=== PATIENT | female | born 1995 | race Caucasian/White ===

== ENCOUNTER 2018-04-13 22:15 | Emergency (ER) | payer MEDICAID, SELFPAY ==
[2018-04-13 22:17] VITALS: BP 117/84; PULSE 73; RESP 22; TEMP 37; O2SAT 98; BMI 38.5
--- NOTE | 2018-04-13 22:48 | ED.VISSUMM ---
- ER Visit Summary Date of Service: 04/13/18 Chief Complaint: Abdominal pain History of Present Illness: The patient is a 22 F with chronic lower abdominal pain along her prior scar for the past 5 years. Pain is reported been worse over the past couple of weeks. Patient states the pain was significant a worsened night she had difficulty standing upright. She denies fever or chills. There is no dysuria. She did take 800 mg of ibuprofen at 9:45 PM. Patient reportedly has seen her [employer] about this in the past but was told there is nothing that can be done. Physical Examination: Vital signs are unremarkable. Patient's lying in bed no acute distress. Heart is regular rate and rhythm. Lung sounds are clear. Abdomen is soft with minimal tenderness along the lower abdomen. The skin is without erythema or lesion. There is no palpable abscess. There is no guarding or rebound. Hypoactive bowel sounds are noted. Test Results: Urinalysis is obtained and normal. Urine test is negative. Emergency Department Course and Treatment: Patient was given Tylenol here. She taken ibuprofen approximately hour prior to arrival. Repeat evaluation patient still intermittently tearful. Abdomen remains soft with very minimal tenderness. I believe the patient likely has scar tissue and nerve irritation from her prior surgery. I recommended follow-up with pain management to see if they can offer her some relief. She will be referred to Dr. Smith. Treatment Plan: [] Disposition: Discharge Impression: Chronic abdominal pain This note was generated with [employer] dictation software. It may contain incorrect words, spelling, and punctuation that were not noted in review of the chart prior to signing ED Disposition - Plan for ED Patient: Chief Complaint: Abd Pain Referrals: Care Physician,No Primary [Primary Care Provider] -
[2018-04-13] MEDS: Acetaminophen 500 MG Tablet 1000 MG PO (23:04)
[2018-04-13 23:18] LABS: Bacteria 0 SEEN /hpf (None Seen); Mucous, Urine 0 SEEN /hpf (<or=2+); Red Blood Cells-Urine 0 SEEN /hpf (0-5)
[2018-04-13 23:30] LABS: Internal QC Validated? YES +Cl - CLEAR BKGD; Pregnancy, Urine Negative Negative
[2018-04-13 23:32] LABS: Color, Urine Yellow (Yellow); Glucose, Dipstick NEGATIVE (Normal); Ketone-Dipstick Negative (Negative); Specific Gravity, Urine 1.025 (1.002-1.030); Urine Bilirubin Dipstick Negative (Negative); Urine Clarity Clear (Clear)
[2018-04-13 23:33] LABS: Leukocyte Esterase-Dipstick Negative /ul (Negative); Nitrite-Dipstick Negative (Negative); Occult Blood-Urine Negative /ul (Negative); Protein-Dipstick 15 mg/dl (Negative); Urine Urobilinogen Normal (Normal)
[2018-04-13 23:35] LABS: Squamous Epithelial Cells - UA 0-5 SEEN /hpf (5-10)
[2018-04-13 23:36] LABS: White Blood Cells 0-5 SEEN /hpf (0-5)
--- NOTE | 2018-04-13 23:40 | ED.DEP ---
ED Disposition - Plan for ED Patient: Disposition: Home or Assisted Living Chief Complaint: Abd Pain Instructions: ED Abdominal Pain Unkn Cause Prescriptions: Naproxen [Naprosyn] 500 mg PO BID PRN PRN #20 tablet PRN Reason: Pain Referrals: Sunday Tillman MD [STAFF PHYSICIAN] - As soon as possible
== END 2018-04-13 23:50 | disposition home or self-care (01) ==
PROVIDERS: Emergency Provider Emergency Medicine; Family Provider Family Medicine
DX: G89.29 Other chronic pain (principal); R10.9 Unspecified abdominal pain; F32.9 Major depressive disorder, single episode, unspecified
CPT/HCPCS: 81001; 81025; 99283

== ENCOUNTER 2018-08-06 10:53 | Emergency (ER) | payer MEDICAID, SELFPAY ==
[2018-08-06 10:54] VITALS: BP 118/74; PULSE 99; RESP 18; TEMP 36.6; O2SAT 96; BMI 36.6
--- NOTE | 2018-08-06 11:19 | ED.VISSUMM ---
- ER Visit Summary Date of Service: 08/06/18 Chief Complaint: Vomiting and diarrhea History of Present Illness: The patient is a 23 F with no primary care physician. She reports that she has abdominal pain, vomiting, and diarrhea that began yesterday. She describes abdominal pain as an aching diffuse pain is 7-10 hours and 5-10 currently. Is worsened by vomiting relieved by nothing. She is been nausea and vomited partially 10 times. No blood or emesis. She reports that she had a lot of diarrhea. No blood in her stools or black tarry stools. No dysuria or frequency. Patient denies sick contacts. Has not been camping out of the country. No possible bad food exposure. Does not drink well water. No recent antibiotic use. Physical Examination: Vitals: Stable. Afebrile. General: Well-nourished and well-developed. Head: Normocephalic atraumatic. Neck: Supple, no lymphadenopathy. No JVD. Nontender. Cardiovascular: Regular rate and rhythm. No murmurs. Respiratory: No respiratory distress. Clear to auscultation bilaterally. Abdominal: Soft, mild diffuse tenderness to palpation, nondistended, normal bowel sounds. No guarding, rebound, or peritoneal signs. Back: Nontender. Extremities: Nontender, no edema. Skin: Normal color, no rash. Neurologic: Alert and oriented ?3. Cranial nerves II through XII are intact. Normal strength and sensation. Psych: Normal affect. Test Results: test is negative. Emergency Department Course and Treatment: Patient had an IV placed. She was given a liter normal saline. She was given Toradol and Zofran IV. She is resting comfortably. Treatment Plan: Patient will be discharged with Zofran. Instructed to push fluids. Did discuss symptomatic treatment. [facility] if not improving. Return to the emergency department for any worsening symptoms. Disposition: To home in improved and stable condition. Impression: 1. Vomiting/diarrhea. This note was generated with [employer] dictation software. It may contain incorrect words, spelling, and punctuation that were not noted in review of the chart prior to signing ED Disposition - Plan for ED Patient: Chief Complaint: Nausea/Vomiting Instructions: ED Vomiting Diarrhea Nonspecific Ad Prescriptions: Ondansetron [Zofran Odt] 4 mg PO Q8H PRN PRN #10 tablet PRN Reason: Nausea Referrals: Una Wilcox [NON-STAFF] - 1-2 Days if not improving
[2018-08-06] MEDS: 0.9% Normal Saline 1,000 ML 1000 ML IV (12:31)
[2018-08-06] MEDS: Ondansetron 4 MG/2 ML Vial IV (12:32)
[2018-08-06] MEDS: Ketorolac 30 MG/ML Syringe IV (12:32)
[2018-08-06 12:50] LABS: Pregnancy, Serum, hCG Quali. NEGATIVE Negative (0-9 Nonpreg)
[2018-08-06 13:47] VITALS: BP 124/76; PULSE 81; RESP 14
== END 2018-08-06 13:49 | disposition home or self-care (01) ==
PROVIDERS: Emergency Provider Emergency Medicine
DX: R19.7 Diarrhea, unspecified (principal); R11.2 Nausea with vomiting, unspecified; R10.9 Unspecified abdominal pain
CPT/HCPCS: 84703; 96361; 96374; 96375; 99283; J7030; A4216; J2405

== ENCOUNTER 2019-01-23 19:50 | Emergency (ER) | payer MEDICAID, SELFPAY ==
[2019-01-23 19:51] VITALS: BP 150/76; PULSE 77; RESP 18; TEMP 36.4; O2SAT 98; BMI 37.7
[2019-01-23] MEDS: DiphenhydrAMINE 50 MG/ML Syringe 25 MG IV (20:41)
[2019-01-23] MEDS: Ketorolac 30 MG/ML Syringe IV (20:41)
[2019-01-23] MEDS: proCHLORPERazine 10 MG/2 ML Vial IV (20:41)
[2019-01-23] MEDS: 0.9% Normal Saline 1,000 ML 999 ML IV (20:41)
--- NOTE | 2019-01-23 21:39 | ED.VISSUMM ---
- ER Visit Summary Date of Service: 01/23/19 Chief Complaint: Headache History of Present Illness: The patient is a 23 F who states that for the past 3 days she has had a intermittent headache. Today however it has been constant. She describes it as a pressure forehead extending up to the vertex. She notes light sensitivity. No aura. She had nausea vomiting. She has been taking a medicine called headache relief. No fevers or rashes. No neck stiffness. She denies any neurologic deficits. No visual changes. Physical Examination: Afebrile vital signs are stable Gen: Well-nourished well-developed Head: Normocephalic atraumatic Eyes: Perrl EOMI mild light sensitivity ENT: TMs clear no rhinorrhea moist mucous membranes Neck: Supple no lymphadenopathy no JVD nontender CVS: Regular rate rhythm no murmurs normal S1-S2 Respiratory: No distress clear to auscultation bilaterally chest nontender Abdomen: Soft nontender nondistended normal bowel sounds no masses Back: Nontender Extremity: Nontender no edema Skin: Normal color no rash Neuro: alert orientated ?3 CN II-XII intact normal strength sensation reflexes gait cerebellar Psych: Normal affect normal mood Emergency Department Course and Treatment: Patient received Toradol Compazine Benadryl and IV fluids. Repeat examination finds the patient rating her pain a 1 out of 10. She will be discharged home. I will refer her to primary care if she wishes to follow-up. Impression: 1. Acute headache This note was generated with [employer] dictation software. It may contain incorrect words, spelling, and punctuation that were not noted in review of the chart prior to signing ED Disposition - Plan for ED Patient: Disposition: Home or Assisted Living Instructions: HEADACHE, Unspecified Referrals: Jaydon Kelley MD [STAFF PHYSICIAN] - (as needed for primary care)
[2019-01-23 22:02] VITALS: PULSE 89; RESP 16; O2SAT 98
== END 2019-01-23 22:02 | disposition home or self-care (01) ==
PROVIDERS: Emergency Provider Emergency Medicine
DX: R51 Headache (principal); R11.2 Nausea with vomiting, unspecified; Z72.0 Tobacco use; F31.9 Bipolar disorder, unspecified; F41.9 Anxiety disorder, unspecified
CPT/HCPCS: 96361; 96374; 96375; 99284; J7030

== ENCOUNTER 2023-10-18 17:44 | Emergency (ER) | payer MEDICAID, SELFPAY ==
[2023-10-18 17:46] VITALS: BP 145/74; PULSE 90; RESP 16; TEMP 35.8; O2SAT 94; BMI 45.0
--- NOTE | 2023-10-18 18:20 | ED.RN ---
Patient LWBS at 1820.
== END 2023-10-18 18:20 | disposition left against medical advice (07) ==
LOC: ED 18:41
DX: Z53.21 Procedure and treatment not carried out due to patient leaving prior to being seen by health care provider (principal)

== ENCOUNTER → 2024-06-09 | Outpatient (CLI) | payer MEDICARE, SELFPAY ==
[2024-06-09 15:16] LABS: Absolute Lymphocyte Count 1.54 X10^3/uL (0.83-4.51); Absolute Neutrophil Count 5.3 X10^3/uL (2.0-7.7); Basophil# 0.03 X10^3/uL; Basophil% 0.4 % (0-1); Eosinophil# 0.09 X10^3/uL; Eosinophils% 1.2 % (0-5); Hematocrit 36.5 % (37-47); Hemoglobin 11.4 g/dL (12.0-15.0); Lymphocyte # 1.54 X10^3/ul (0.83-4.51); Lymphocyte % 20.7 % (19-41); Mean Corp Hgb Conc 31.2 g/dL (32-36); Mean Corpuscular Hgb 25.5 pg (27.0-32.0); Mean Corpuscular Volume 81.7 fL (81-99); Mean Platelet Vol. 9.3 fl (6.2-12.0); Monocyte# 0.44 X10^3/uL; Monocyte% 5.9 % (0-10); NRBC Flagged by Analyzer 0 % (0-5); Neutrophil % 71.4 % (47-70); Platelet Count 287 K/mm3 (150-450); RBC Distribution Width CV 13.5 % (11.6-14.6); RBC Distribution Width SD 39.8 fl (35.1-43.9); Red Blood Count 4.47 M/mm3 (4.2-5.4); White Blood Count 7.4 K/mm3 (4.4-11.0)
[2024-06-09 15:36] LABS: Vitamin D,25 Hydroxy 26.5 ng/mL
[2024-06-09 15:40] LABS: ALB/GLOB Ratio 0.9 RATIO (0.9-2.4); AST(SGOT) 17 U/L (15-37); Alanine Aminotransfer ALT/SGPT 18 U/L (13-56); Albumin, Serum 3.6 g/dL (3.2-5.0); Alkaline Phosphatase 115 U/L (45-117); Anion Gap 7 (5-15); BUN 12 mg/dL (7-18); BUN/Creat Ratio 16.8 RATIO (10-20); Calcium,Total 8.8 mg/dL (8.5-10.1); Chloride 106 mmol/L (98-107); Cholesterol 194 mg/dL (200); Creatinine, Serum 0.71 mg/dL (0.55-1.02); EST Glomerular Filtration Rate 104 mL/min (>60); Est Glom Filt Rate - Afr Amer 126 mL/min (>60); Glucose 87 mg/dL (74-106); High Density Lipoprotein 73 mg/dL; Potassium 3.8 mmol/L (3.5-5.1); Protein, Total 7.6 g/dL (6.4-8.2); Sodium Level 137 mmol/L (136-145); Triglycerides 100 mg/dL; Very Low Density Lipoprotein 20 mg/dL (5-40)
[2024-06-10 11:07] LABS: hCG Titer Quant., Serum < 1 mIU/mL (1-3)
== END | disposition home or self-care (01) ==
LOC: MTLAB 12:45
PROVIDERS: PCP Family Medicine; Referring Provider Family Medicine; Visit Provider Family Medicine
DX: Z13.220 Encounter for screening for lipoid disorders (principal); Z13.1 Encounter for screening for diabetes mellitus; G47.00 Insomnia, unspecified; F32.A Depression, unspecified; O03.9 Complete or unspecified spontaneous abortion without complication
CPT/HCPCS: 36415; 80053; 80061; 82306; 84702; 85025

== ENCOUNTER → 2024-08-24 | Outpatient (CLI) | payer MEDICARE, SELFPAY ==
--- NOTE | 2024-08-24 16:30 | RAD_ITS ---
PROCEDURE: FOOT MIN 3 VIEWS REASON FOR EXAM: Foot injury. Pain along the lateral aspect. TECHNIQUE: 3 view(s) of the right foot COMPARISON: None. FINDINGS: RIGHT FOOT: Anatomic alignment. Trace spurring involving the dorsal navicular. No acute appearing fractures or dislocations are identified. No bony destructive lesions are seen. Overlying soft tissues appear intact. No radiopaque foreign b odies are identified. RAD/Foot min 3 Views IMPRESSION: No acute osseous abnormalities identified. Reading Location: [id number]
== END | disposition home or self-care (01) ==
LOC: MTRAD 16:27
PROVIDERS: PCP Family Medicine; Referring Provider Family Medicine; Visit Provider Family Medicine
DX: M79.671 Pain in right foot (principal)
CPT/HCPCS: 73630

== ENCOUNTER → 2024-11-17 | Outpatient (CLI) | payer MEDICARE, SELFPAY ==
--- NOTE | 2024-11-17 07:55 | US_ITS ---
PROCEDURE: ABDOMEN LIMITED 11/17/2024 REASON FOR EXAM: RUQ PAIN COMPARISON: No priors. FINDINGS: Liver: Diffusely echogenic suggesting fatty infiltration. The liver measures 16.6 cm. Gallbladder: No stones, sludge, wall thickening or tenderness. Common bile duct: Normal measuring it measures 5.6 mm.. Pancreas: Visualized portions are sonographically unremarkable. Other: Visualized portions of the right kidney are unremarkable. No right upper quadrant ascites. US/Abdomen Limited IMPRESSION: Fatty infiltration of the liver. The liver measures 16.6 cm. Reading Location: [place] [id number]
== END | disposition home or self-care (01) ==
LOC: US 07:51
PROVIDERS: PCP Family Medicine; Referring Provider Family Medicine; Visit Provider Family Medicine
DX: R10.11 Right upper quadrant pain (principal)
CPT/HCPCS: 76705

== ENCOUNTER → 2024-12-01 | Outpatient (CLI) | payer MEDICARE, SELFPAY ==
[2024-12-01 09:49] LABS: Absolute Lymphocyte Count 1.84 X10^3/uL (0.83-4.51); Absolute Neutrophil Count 5.1 X10^3/uL (2.0-7.7); Basophil# 0.02 X10^3/uL; Basophil% 0.3 % (0-1); Eosinophil# 0.09 X10^3/uL; Eosinophils% 1.2 % (0-5); Hematocrit 40.4 % (37-47); Hemoglobin 13.4 g/dL (12.0-15.0); Lymphocyte # 1.84 X10^3/ul (0.83-4.51); Lymphocyte % 24.2 % (19-41); Mean Corp Hgb Conc 33.2 g/dL (32-36); Mean Corpuscular Hgb 28.2 pg (27.0-32.0); Mean Corpuscular Volume 84.9 fL (81-99); Mean Platelet Vol. 9.2 fl (6.2-12.0); Monocyte# 0.49 X10^3/uL; Monocyte% 6.5 % (0-10); NRBC Flagged by Analyzer 0 % (0-5); Neutrophil # 5.12 X10^3/uL (2.7-7.7); Neutrophil % 67.4 % (47-70); Platelet Count 277 K/mm3 (150-450); RBC Distribution Width CV 12.8 % (11.6-14.6); RBC Distribution Width SD 39.8 fl (35.1-43.9); Red Blood Count 4.76 M/mm3 (4.2-5.4); White Blood Count 7.6 K/mm3 (4.4-11.0)
[2024-12-01 10:23] LABS: ALB/GLOB Ratio 1.4 RATIO (0.9-2.4); AST(SGOT) 19 U/L (<=31); Alanine Aminotransfer ALT/SGPT 18 U/L (<=34); Albumin, Serum 4.2 g/dL (3.5-5.0); Alkaline Phosphatase 100 U/L (35-104); Anion Gap 11 (5-15); BUN 12 mg/dL (4-19); BUN/Creat Ratio 18.4 RATIO (10-20); Calcium,Total 9.4 mg/dL (7.6-11.0); Chloride 103 mmol/L (98-108); Creatinine, Serum 0.66 mg/dL (0.70-1.20); EST Glomerular Filtration Rate 123 (>60); Glucose 124 mg/dL (70-99); Potassium 3.9 mmol/L (3.3-5.1); Protein, Total 7.2 g/dL (5.9-8.4); Sodium Level 138 mmol/L (133-145); Total Bilirubin 0.21 mg/dL (0.00-1.30)
== END | disposition home or self-care (01) ==
PROVIDERS: PCP Family Medicine; Referring Provider Student in an Organized Health Care Education/Training Program; Visit Provider Student in an Organized Health Care Education/Training Program
DX: K76.0 Fatty (change of) liver, not elsewhere classified (principal); R19.7 Diarrhea, unspecified
CPT/HCPCS: 36415; 80053; 85025

== ENCOUNTER → 2024-12-08 | Outpatient (CLI) | payer MEDICARE, SELFPAY ==
--- NOTE | 2024-12-08 12:53 | RAD_ITS ---
PROCEDURE: LUMBAR SPINE 2 OR 3 VIEWS 12/08/2024 REASON FOR EXAM: LOW BACK PAIN TECHNIQUE: 3 view(s) of the lumbar spine; AP, lateral and coned-down L5-S1 view COMPARISON: None available FINDINGS: 5 [id number] lumbar vertebral body types identified. No fracture or malalignment. The disc spaces appear within limits. No osseous lesion identified. RAD/Lumbar Spine 2 or 3 Views IMPRESSION: Study appears within limits. Reading Location: [id number]
[2024-12-11 04:07] LABS: Chlamydia By Nucleic Acid AMP Negative (Negative); Gonococcus By Nucleic Acid AMP Negative (Negative)
[2024-12-13 22:50] LABS: HPV Reflexed? NOT INDICATED
== END | disposition home or self-care (01) ==
LOC: MTLAB 12:53 → LABSPEC 16:51
PROVIDERS: Advanced Practice Midwife; PCP Family Medicine; Referring Provider Family Medicine; Visit Provider Family Medicine
DX: Z00.00 Encounter for general adult medical examination without abnormal findings (principal); Z11.3 Encounter for screening for infections with a predominantly sexual mode of transmission; R10.2 Pelvic and perineal pain; Z12.4 Encounter for screening for malignant neoplasm of cervix; Z13.29 Encounter for screening for other suspected endocrine disorder; N92.0 Excessive and frequent menstruation with regular cycle
CPT/HCPCS: 36415; 72100; 84443; 87070; 87205; 87491; 87591; 88175; G0145

== ENCOUNTER → 2025-04-13 | Outpatient (CLI) | payer MEDICARE, SELFPAY ==
--- NOTE | 2025-04-13 14:47 | US_ITS ---
PROCEDURE: PELVIC W/ TRANSVAGINAL REASON FOR EXAM: PELVIC PAIN TECHNIQUE: Procedure Code: USPELTVAG Modality: US Procedure: PELVIC W/ TRANSVAGINAL COMPARISON: None FINDINGS: LMP: June 01, 2025 Measurements: Uterus: 9.4 cm x 4.7 cm x 4.3 cm with a volume of 98.6 mL Endometrial Thickness: 1.2 cm. It is hyperechoic. Right Ovary: 3.6 cm x 3 cm x 2.5 cm with a volume of 6 mL. Left Ovary: 3.1 cm x 2.1 cm x 1.5 cm with a volume of 4 mL. TRANSABDOMINAL: Uterus: Normal size, myometrial echotexture, and contour. Nabothian cyst. Endometrium: Endometrium measures 12 mm. It is hyperechoic. Right ovary: 1.7 cm 1.7 cm 1.3 cm dominant follicle. Left ovary: 1.4 cm x 1.2 cm 1 cm dominant follicle. Other: No large pelvic mass identified. Transvaginal sonography was performed to better visualize the endometrium. TRANSVAGINAL: Uterus: Anteverted. Endometrium: Normal echotexture. Right ovary: Dominant follicle. Left ovary: Dominant follicle. Other adnexal findings: None. Cul-de-sac: No free intraperitoneal fluid identified. Tenderness: No tenderness US/Pelvic w/ Transvaginal IMPRESSION: Dominant follicle seen in both ovaries. Reading Location: [place] [id number]
== END | disposition home or self-care (01) ==
LOC: US 14:44
PROVIDERS: PCP Family Medicine; Referring Provider Advanced Practice Midwife; Visit Provider Advanced Practice Midwife
DX: R10.2 Pelvic and perineal pain (principal)
CPT/HCPCS: 76830; 76856

== ENCOUNTER → 2025-04-14 | Outpatient (CLI) | payer MEDICARE, SELFPAY ==
--- NOTE | 2025-04-14 08:58 | US_ITS ---
PROCEDURE: ELASTOGRAPHY PARENCHYMA/ORGAN 04/14/2025 REASON FOR EXAM: FATTY LIVER, PELVIC PAIN TECHNIQUE: Procedure Code: USELPAROG Modality: US Procedure: ELASTOGRAPHY PARENCHYMA/ORGAN COMPARISON: None FINDINGS: Fatty infiltration of the liver. KPA: 5.4 Velocity: 1.34 m/sec US/Elastography Parenchyma/Organ IMPRESSION: No to mild hepatic fibrosis. Reading Location: [place] [id number]
== END | disposition home or self-care (01) ==
PROVIDERS: PCP Family Medicine; Referring Provider Student in an Organized Health Care Education/Training Program; Visit Provider Student in an Organized Health Care Education/Training Program
DX: R10.2 Pelvic and perineal pain (principal); K76.0 Fatty (change of) liver, not elsewhere classified
CPT/HCPCS: 76981